=== PATIENT | female | born 1975 | race Caucasian/White ===

== ENCOUNTER 2020-07-13 16:01 | Outpatient (REF) | payer BC, SELFPAY ==
[2020-07-15 23:01] LABS: COVID-19 RT-PCR UVMMC Result Negative (Negative)
== END 2020-07-13 16:21 ==
LOC: NCHCN 16:01
PROVIDERS: PCP Family Medicine; Visit Provider Nurse Practitioner Family
DX: Z20.828 Contact with and (suspected) exposure to other viral communicable diseases (principal)
CPT/HCPCS: U0003

== ENCOUNTER 2020-09-22 20:41 | Outpatient (REF) | payer BC, SELFPAY ==
[2020-09-24 14:07] LABS: COVID-19 RT-PCR UVMMC Result Negative (Negative)
== END 2020-09-22 20:42 | disposition home or self-care (01) ==
LOC: NCHCN 20:41
PROVIDERS: PCP Family Medicine; Visit Provider Nurse Practitioner Family
DX: Z20.822 Contact with and (suspected) exposure to COVID-19 (principal); J02.9 Acute pharyngitis, unspecified
CPT/HCPCS: U0003

== ENCOUNTER 2022-10-04 15:47 | Outpatient (REF) | payer BC, SELFPAY ==
--- NOTE | 2022-10-04 15:30 | PAPFT_PTH ---
PATIENT: Corey Mcleod LOC: [facility]#:[id number] AGE/SX: 47/F ROOM: RE10/04/[address]: Marisela Stevenson : 1975 BED: DIS: 10/04/2022 SPEC #: [id number] RECD: 10/05/22 12:56 STATUS: PAVEL REQ #: [id number] MADI: 10/04/22 15:[address]: Marisela Stevenson DEPT: [facility] Cytology RECD BY: Taryn Melissa ENTERED: 10/05/22 12:56 SP TYPE: PAPFT NINA DR: Sarah Mae Tissues: 1 - CX/ENDOCX FOR PAP SMEARS Procedures: PAP THIN PREP/[facility] Screening HPV DNA PROBE Comments: [id number]
[2022-10-04 21:27] LABS: Hemoglobin A1C 5.9 % (<5.7)
[2022-10-04 21:42] LABS: ALT 26 U/L (14-59); AST 18 U/L (15-37); Alkaline Phosphatase 65 U/L (46-116); BUN 13 mg/dL (7-18); Bilirubin, Total 0.3 mg/dL (0.2-1.0); CREATININE 0.7 mg/dL (0.55-1.02); Calcium 9.4 mg/dL (8.5-10.1); Calculated LDL 95 mg/dL (<100); Chloride 103 mmol/L (98-107); Cholesterol 205 mg/dL (<200); Estimated GFR 107.28 (mL/min/1.73m2); Glucose 87 mg/dL (74-106); HDL Cholesterol 44 mg/dL (40-60); Sodium 140 mmol/L (136-145); TSH (W/Ref FT4) 2.95 uIU/mL (0.36-3.74); Total Protein 7.5 g/dL (6.4-8.2); Triglyceride 330 mg/dL (<150)
== END 2022-10-04 15:48 | disposition home or self-care (01) ==
LOC: NCHCN 15:47
PROVIDERS: PCP Family Medicine; Visit Provider Nurse Practitioner Family
DX: Z00.00 Encounter for general adult medical examination without abnormal findings (principal); R53.83 Other fatigue; F43.89 Other reactions to severe stress; E66.8 Other obesity; Z13.1 Encounter for screening for diabetes mellitus; Z83.3 Family history of diabetes mellitus; Z12.4 Encounter for screening for malignant neoplasm of cervix; Z11.51 Encounter for screening for human papillomavirus (HPV); Z01.419 Encounter for gynecological examination (general) (routine) without abnormal findings
CPT/HCPCS: 80053; 80061; 88142; 83036; 84443; 87624

== ENCOUNTER 2022-10-23 14:54 | Outpatient (REF) | payer BC, SELFPAY ==
[2022-10-23 17:02] LABS: Anion Gap 9.3 mmol/L (3-11); BUN 10 mg/dL (7-18); CO2 25.7 mmol/L (21.0-32.0); CREATININE 0.7 mg/dL (0.55-1.02); Calcium 9.1 mg/dL (8.5-10.1); Chloride 104 mmol/L (98-107); Estimated GFR 107.28 (mL/min/1.73m2); Glucose 119 mg/dL (74-106); Potassium 4.5 mmol/L (3.5-5.1); Sodium 139 mmol/L (136-145)
== END 2022-10-23 14:55 | disposition home or self-care (01) ==
LOC: NCHCN 14:54
PROVIDERS: PCP Family Medicine; Visit Provider Nurse Practitioner Family
DX: R80.9 Proteinuria, unspecified (principal)
CPT/HCPCS: 80048

== ENCOUNTER 2024-11-12 16:06 | Outpatient (REF) | payer BC, SELFPAY ==
[2024-11-12 15:16] LABS: Abs Immature Grans 0.03 10^3/uL (0.0-0.06); Absolute Basophil Count 0.06 10^3/uL (0.0-0.2); Absolute Eosinophil Count 0.19 10^3/uL (0.0-0.7); Absolute Lymphocyte Count 1.22 10^3/uL (1.2-3.4); Absolute Monocyte Count 0.47 10^3/uL (0.1-0.8); Absolute Neutrophil Count 3.72 10^3/uL (1.2-6.7); Basophils % 1.1 %; Eosinophils % 3.3 %; HCT 27.7 % (36.0-46.0); HGB 8.3 g/dL (11.2-15.7); Immature Grans % 0.5 %; Lymphocytes % 21.4 %; MCH 24.3 pg (27.0-33.0); MCV 81 fL (80-95); MPV 10.3 fL (8.0-11.0); Monocytes % 8.3 %; Neutrophils % 65.4 %; Platelet Count 348 10^3/uL (130-400); RBC 3.42 10^6/uL (3.93-5.22); RDW 17.2 % (11.7-14.6); RDW-SD 50.2 fL; WBC 5.69 10^3/uL (4.4-10.8)
[2024-11-12 15:30] LABS: Bilirubin Negative (Negative); Blood Negative (Negative); Clarity Clear (Clear); Glucose Negative (Negative); Ketones Negative (Negative); Leukocyte Esterase Negative (Negative); Nitrite Negative (Negative); Urobilinogen 0.2 mg/dL (Up to 0.2)
[2024-11-12 15:36] LABS: ALT 29 U/L (14-59); AST 24 U/L (15-37); Albumin 3.5 g/dL (3.4-5.0); Alkaline Phosphatase 45 U/L (46-116); Anion Gap 5.1 mmol/L (3-11); BUN 10 mg/dL (7-18); Bilirubin, Total 0.3 mg/dL (0.2-1.0); CO2 30.9 mmol/L (21.0-32.0); CREATININE 0.8 mg/dL (0.55-1.02); Calcium 9.5 mg/dL (8.5-10.1); Chloride 109 mmol/L (98-107); Estimated GFR 90.27 (mL/min/1.73m2); Glucose 99 mg/dL (74-106); Potassium 4.7 mmol/L (3.5-5.1); Sodium 145 mmol/L (136-145); TSH (W/Ref FT4) 2.81 uIU/mL (0.36-3.74); Total Protein 6.5 g/dL (6.4-8.2)
[2024-11-12 16:08] LABS: COMMENT (LAB VIEW ONLY) 20.05 mg/dL; Microalb ug/mg Crea 47.4 ug/mg Cr
[2024-11-13 11:57] LABS: Iron 26 ug/dL (50-170); Total Iron Binding Capacity 387 ug/dL (250-450); Transferrin Sat 7 % (15-50)
[2024-11-13 12:10] LABS: Ferritin 43 ng/mL (8-252)
[2024-11-16 09:33] LABS: Transferrin 303 mg/dL (201-352)
== END 2024-11-12 16:07 | disposition home or self-care (01) ==
LOC: NCHCN 16:06
PROVIDERS: PCP Family Medicine; Visit Provider Nurse Practitioner Family
DX: I10 Essential (primary) hypertension (principal); R53.83 Other fatigue
CPT/HCPCS: 80053; 81003; 82043; 82570; 82728; 83540; 83550; 84443; 84466; 85025

== ENCOUNTER 2025-01-05 01:47 | Outpatient (CLI) | payer BC, SELFPAY ==
--- NOTE | 2025-01-05 08:29 | DI.MAMMO_ITS ---
Exam(s) MAMMO SCREENING EXAM: MAMMO SCREENING CLINICAL HISTORY: Screening, Z12.31 TECHNIQUE: Bilateral full field digital CC and MLO mammographic images were obtained with 3D tomosynthesis and utilizing computer aided detection (CAD). COMPARISON: This is a baseline examination. FINDINGS: Masses/Architectural Distortion: No suspicious masses or areas of architectural distortion are present. There is a partially obscured nodule with coarse calcifications in the inferior retroareolar region of the right breast most suggestive of a fibroadenoma. Microcalcifications: No suspicious pleomorphic-type are seen. Skin Thickening/Nipple Retraction: None. IMPRESSION: 1. No evidence for malignancy is seen at this time. 2. Unless there is more urgent need, screening mammography is recommended, as per [employer] guidelines. BI-RADS Category 2 - Benign Findings Breast Density - Category C - The breast are heterogeneously dense, which may obscure small masses. Breast density Category C or D implies that the patient has dense breast tissue. Dense breast tissue can make it harder to find cancer on a mammogram. Dense breast tissue is also associated with an increased risk of breast cancer. This information about the result of the mammogram report was provided to the patient to raise their awareness. Use this report when you speak with the patient about their risks for breast cancer, which includes their family history. At that time, you may recommend additional screening tests (Ultrasound or MRI) as these tests may add significant information. A negative radiographic report should not delay biopsy if a dominant or clinically suspicious mass is present. Up to ten percent of cancers are not identified on mammography. A negative report may reinforce clinical impression. Adenosis and dense breasts may obscure an underlying neoplasm. False positive reports average 6 to 10%. Patient will receive a letter notifying them of these results.
== END 2025-01-05 02:07 ==
LOC: DI 01:48
PROVIDERS: PCP Family Medicine; Visit Provider Nurse Practitioner Family
DX: Z12.31 Encounter for screening mammogram for malignant neoplasm of breast (principal); R92.323 Mammographic fibroglandular density, bilateral breasts; D24.1 Benign neoplasm of right breast
CPT/HCPCS: 77063; 77067